=== PATIENT | male | born 1990 | race Caucasian/White ===

== ENCOUNTER 2021-09-15 15:07 | Emergency (ER) | payer BC, SELFPAY ==
[2021-09-15 15:12] VITALS: BP 123/75; PULSE 84; RESP 18; TEMP 37.3; O2SAT 97; BMI 40.2
--- NOTE | 2021-09-15 15:34 | ED_ITS ---
HPI - General Adult General Chief complaint: Laceration/Wound Stated complaint: INFLAMED PROTUSION ON RIGHT BACK HIP Time Seen by Provider: 09/15/21 15:26 History of Present Illness HPI narrative: Patient is a 30-year-old gentleman up-to-date on his tetanus shot who comes in today with an indurated red swollen area in the right buttocks. He states he fell off a pickup truck proximally week ago which is the time when the symptoms began. The area is red and raised and erythematous and to the right of the midline in the gluteal region. He has had no fevers no chills no night sweats. He has been trying to ice the area with no success. There is no opening and no drainage. He states his symptoms are moderate to severe with significant discomfort. He has had no similar symptoms previously. Related Data Home Medications Medication Instructions Recorded Confirmed No Known Home Medications 09/15/21 09/15/21 Allergies Allergy/AdvReac Type Severity Reaction Status Date / Time No Known Drug Allergies Allergy Verified 09/15/21 15:16 Review of Systems Status of ROS: Reports: 10 or more systems reviewed and unremarkable except as noted in History and below [facility] Social History Smoking Status: Current every day smoker Do you use any of these nicotine containing products: Smokeless Tobacco How often do you have a drink containing alcohol: 2-3 times a week How many standard drinks containing alcohol do you have on a typical day: 1 or 2 How often do you have six or more drinks on one occasion: Never AUDIT-C Alcohol total score: 3 Non-prescribed substance use: denies use service: No Exam Narrative: Exam Narrative: EXAM GENERAL: Patient appears comfortable and well. EYES: No scleral icterus. LYMPH: No supraclavicular or cervical lymphadenopathy. SKIN: Large area of induration in the right buttocks approximately 8 x 8 cm with redness and firm texture. No discharge or fluctuance. EXT: No dependent lower extremity pedal edema. HEART: Regular rate and rhythm with no murmurs, rubs, or gallops. LUNGS: Clear to auscultation bilaterally with no crackles or wheezes. ABD: Soft, non tender, non distended. PSYCH: Good eye contact, speech is not pressured. Const: Vital Signs, click to edit/add: Vital Signs - 24 hr 09/15/21 15:12 Temperature 99.2 F Pulse Rate [Pulse Oximeter] 84 Respiratory Rate 18 Blood Pressure [Ri ght Upper Arm] 123/75 Pulse Oximetry 97 Skin: Skin images (male): 1. Course Vital Signs Vital signs: Initial Vital Signs Temperature 99.2 F 09/15/21 15:12 Temperature Source Temporal Artery Scan 09/15/21 15:12 Pulse Rate 84 09/15/21 15:12 Pulse Rhythm 09/15/21 15:12 Respiratory Rate 18 09/15/21 15:12 Blood Pressure 123/75 09/15/21 15:12 Blood Pressure Mean 91 09/15/21 15:12 Blood Pressure Position Sitting 09/15/21 15:12 Pulse Oximetry 97 09/15/21 15:12 Oxygen Delivery Method 09/15/21 15:12 Vital Signs Temperature 99.2 F 09/15/21 15:12 Pulse Rate 84 09/15/21 15:12 Respiratory Rate 18 09/15/21 15:12 Blood Pressure 123/75 09/15/21 15:12 Pulse Oximetry 97 09/15/21 15:12 Temperature 99.2 F 09/15/21 15:12 Pulse Rate 84 09/15/21 15:12 Respiratory Rate 18 09/15/21 15:12 Blood Pressure 123/75 09/15/21 15:12 Pulse Oximetry 97 09/15/21 15:12 Medical Decision Making MDM Narrative Medical decision making narrative: Patient has abscess the right buttocks likely pilonidal cyst. I do not palpate any fluctuance in his no signs of fever or sepsis. Patient appears nontoxic. We did have a nice discussion we did verify that his tetanus shot is up-to-date. Discharge Plan Discharge Clinical Impression: Cyst, pilonidal, with abscess Patient Disposition: Home, Self-Care Condition: Stable Instructions: Pilonidal Cyst (ED) Additional Instructions: Keflex as directed Warm Compresses Follow up with General Surgery in 1-2 days Activity Level: Activity as Tolerated Discharge Diet: Regular Prescriptions: No Action No Known Home Medications 0RF Stand Alone Forms: [employer] Info Instructions
== END 2021-09-15 15:54 | disposition home or self-care (01) ==
LOC: ED 15:52
PROVIDERS: Emergency Provider Internal Medicine
DX: L05.01 Pilonidal cyst with abscess (principal)
CPT/HCPCS: 99283; 99284

== ENCOUNTER 2021-09-16 15:20 | Outpatient (CLI) | payer BC, SELFPAY | END 2021-09-16 15:21 | disposition home or self-care (01) | LOC: NFLDREF 15:21 | PROVIDERS: Visit Provider Surgery | DX: L02.31 Cutaneous abscess of buttock (principal) | CPT/HCPCS: 80048; 86140; 87070; 87186 ==

== ENCOUNTER 2021-09-21 09:54 | Outpatient (RCR) | payer BC, SELFPAY ==
--- NOTE | 2021-09-20 10:40 | PC.NURSE ---
Patient arrived to M/S for outpatient dressing change. Old dressing/packing removed, moderate serosanguineous drainage noted. Wound opening approx size of quarter. Area around opening had previously been outlined, redness appears to be receding from this outline. Area cleansed with normal saline. Wet to dry dressing applied. 4x4 placed loosely in cavity per surgeon orders. Patient states pain is better for dressing change today vs previous changes. Patient will return tomorrow at 1000 for daily dressing change. No further questions.
--- NOTE | 2021-09-21 10:18 | PC.NURSE ---
Patient arrived to floor for dressing change. Removed dressing from yesterday, moderate serosanguineous drainage on bandage. Moistened with saline, removed 4x4, cleansed area and loosely packed partial 4x4 in wound. Covered with absorbant dressing and surgical tape. Redness has continued to recede from outline made by surgeon. Patient reports minimal pain with remove packing/replace packing only, denies pain once this is compete. No further questions. Ambulated to vehicle.
== END 2021-09-21 23:59 | disposition home or self-care (01) ==
LOC: MS OUT 09:54
PROVIDERS: Visit Provider Surgery
DX: L02.31 Cutaneous abscess of buttock (principal); Z48.00 Encounter for change or removal of nonsurgical wound dressing
CPT/HCPCS: 99211